=== PATIENT | female | born 1980 | race Asian ===

== ENCOUNTER 2017-04-20 18:08 | Outpatient (CLI) | payer OTHER | END 2017-04-20 19:12 | disposition home or self-care (01) | LOC: INF 18:08 | DX: E86.0 Dehydration (principal) | CPT/HCPCS: 96360; 96361 ==

== ENCOUNTER 2018-12-21 13:57 | Outpatient (CLI) | payer OTHER | END 2018-12-21 20:07 | disposition home or self-care (01) | LOC: LABW 13:57 | DX: D50.8 Other iron deficiency anemias (principal); K21.9 Gastro-esophageal reflux disease without esophagitis | CPT/HCPCS: 36415; 82728; 82746; 83540; 83550; 86850; 86870; 86900; 86901; 86922 ==

== ENCOUNTER 2018-12-28 11:03 | Observation (INO) | payer OTHER ==
[~2018-12-28] VITALS: Ht 167.6 cm; Wt 89.4 kg
[2018-12-28 11:05] VITALS: BP 131/86; TEMP 98.2
[2018-12-28 11:48] LABS: PLATELET COUNT 191 K/uL (152-353)
[2018-12-28 11:58] LABS: POTASSIUM 3.5 mmol/L (3.6-5.2)
[2018-12-28 15:40] VITALS: BP 135/78; TEMP 99.1; Ht 167.6 cm; Wt 89.4 kg
[2018-12-28 16:00] VITALS: BP 127/75
[2018-12-28 17:00] VITALS: BP 120/77; TEMP 99.3
[2018-12-28] MEDS ORDERED: FERROUS SULF325 M1 PO (17:50)
[2018-12-28] MEDS ORDERED: THIA100T8 PO (17:51)
[2018-12-28 20:00] VITALS: TEMP 99.7
[2018-12-28 23:00] VITALS: BP 108/62
[2018-12-29] VITALS (14 sets, daily range): BP systolic 83–119; BP diastolic 38–73; TEMP 98.2–99.2
[2018-12-30] VITALS: BP 104/50; TEMP 98.8
[2018-12-30 04:00] VITALS: BP 106/59; TEMP 97.7
[2018-12-30 06:49] LABS: PLATELET COUNT 148 K/uL (152-353)
[2018-12-30 08:00] VITALS: BP 108/61; TEMP 97.6
== END 2018-12-30 11:30 | disposition home or self-care (01) ==
LOC: ED 11:03 → ICU 15:20 → MED/SURG 12-29 12:20 → ICU 12-29 12:20 → MED/SURG 12-29 12:20
PROVIDERS: Emergency Medicine; ADMIT Emergency Medicine
DX: D57.20 Sickle-cell/Hb-C disease without crisis (principal)
CPT/HCPCS: 36415; 80053; 85014; 85018; 85027; 85044; 86850; 86900; 86901; 86922; 93005; 96360; 99220; 99284; G0378; J1650; J2175; J2405; P9016

== ENCOUNTER 2019-01-10 10:40 | Outpatient (CLI) | payer OTHER ==
[~2019-01-10] VITALS: Ht 160 cm; Wt 65.8 kg
[~2019-01-10 10:40] MED LIST: FERROUS SULF325 M1 PO; THIA100T8 PO
[2019-01-10 13:25] VITALS: BP 108/57; TEMP 98.7
== END 2019-01-10 20:17 | disposition home or self-care (01) ==
LOC: INF 10:40
PROC: 30233N1 Transfusion of Nonautologous Red Blood Cells into Peripheral Vein, Percutaneous Approach (ICD-10-PCS; principal; 2019-01-10)
DX: D50.8 Other iron deficiency anemias (principal)
CPT/HCPCS: 36430; 85014; 85018; 86850; 86900; 86901; 86922; P9016

== ENCOUNTER 2019-02-20 17:11 | Outpatient (CLI) | payer OTHER ==
[2019-02-20 17:26] LABS: PLATELET COUNT 267 K/uL (152-353)
[2019-02-20 17:34] LABS: POTASSIUM 3.9 mmol/L (3.6-5.2)
== END 2019-02-20 20:05 | disposition home or self-care (01) ==
LOC: LABW 17:11
PROVIDERS: Family Medicine
DX: E53.9 Vitamin B deficiency, unspecified (principal); D64.89 Other specified anemias; R42 Dizziness and giddiness
CPT/HCPCS: 36415; 80053; 82607; 85027

== ENCOUNTER 2019-02-21 11:45 | Emergency (ER) | payer OTHER ==
[~2019-02-21] VITALS: Ht 160 cm; Wt 65.8 kg
[2019-02-21 12:00] VITALS: TEMP 97.3
[2019-02-21 14:28] VITALS: BP 129/75
== END 2019-02-21 15:08 | disposition short-term general hospital (02) ==
LOC: ED 11:45
DX: D57.00 Hb-SS disease with crisis, unspecified (principal)
CPT/HCPCS: 36415; 96360; 96375; 99284; J2175; J2405

== ENCOUNTER 2019-02-21 15:40 | Outpatient (CLI) | payer OTHER | END 2019-02-21 16:50 | disposition short-term general hospital (02) | LOC: AMB 15:40 | DX: D57.00 Hb-SS disease with crisis, unspecified (principal); M79.605 Pain in left leg; M79.604 Pain in right leg; R53.1 Weakness | CPT/HCPCS: A0425; A0429 ==

== ENCOUNTER 2020-02-07 16:40 | Outpatient (CLI) | payer BC, OTHER | END 2020-02-07 22:24 | disposition home or self-care (01) | LOC: LABW 16:40 | DX: D64.9 Anemia, unspecified (principal) | CPT/HCPCS: 36415; 82746; 83540; 83550; 85014; 85018; 86850; 86900; 86901; 86922 ==

== ENCOUNTER 2020-02-17 09:27 | Outpatient (CLI) | payer BC, OTHER | END 2020-02-17 23:37 | disposition home or self-care (01) | LOC: INF 09:27 | DX: D64.9 Anemia, unspecified (principal) | CPT/HCPCS: 36415; 36430; 85014; 85018; 86850; 86870; 86900; 86901; 86922; P9016 ==

== ENCOUNTER 2020-02-18 11:37 | Outpatient (CLI) | payer BC, OTHER | END 2020-02-18 20:21 | disposition home or self-care (01) | LOC: LAB 11:37 | DX: Z00.00 Encounter for general adult medical examination without abnormal findings (principal) | CPT/HCPCS: 36415; 85014; 85018 ==

== ENCOUNTER 2020-02-21 10:11 | Outpatient (CLI) | payer BC, OTHER | END 2020-02-21 21:50 | disposition home or self-care (01) | LOC: RAD 10:11 | DX: R10.13 Epigastric pain (principal); R13.12 Dysphagia, oropharyngeal phase; K21.9 Gastro-esophageal reflux disease without esophagitis; K44.9 Diaphragmatic hernia without obstruction or gangrene; K29.70 Gastritis, unspecified, without bleeding ==

== ENCOUNTER 2020-03-06 08:17 | Outpatient (CLI) | payer BC, OTHER ==
[~2020-03-06] VITALS: Ht 167.6 cm; Wt 95.3 kg
[2020-03-06 08:30] VITALS: BP 122/76; TEMP 98.6
== END 2020-03-06 11:05 | disposition home or self-care (01) ==
LOC: INF 08:17
DX: D50.8 Other iron deficiency anemias (principal); R53.83 Other fatigue
CPT/HCPCS: 36591; 84100; 85014; 85018; 96365; J1439

== ENCOUNTER 2020-03-14 07:39 | Outpatient (CLI) | payer BC, OTHER ==
[~2020-03-14] VITALS: Ht 167.6 cm; Wt 95.3 kg
[2020-03-14 10:50] VITALS: BP 113/61; TEMP 98
== END 2020-03-14 12:20 | disposition home or self-care (01) ==
LOC: INF 07:39
DX: D50.8 Other iron deficiency anemias (principal)
CPT/HCPCS: 96365; J1439

== ENCOUNTER 2020-04-01 16:13 | Outpatient (CLI) | payer BC, OTHER | END 2020-04-01 19:25 | disposition home or self-care (01) | LOC: RAD 16:13 | DX: R05 Cough (principal) ==

== ENCOUNTER 2022-10-29 11:53 | Outpatient (CLI) | payer BC, OTHER | END 2022-10-29 20:42 | disposition home or self-care (01) | LOC: RAD 11:53 | PROVIDERS: ATTEND Plastic Surgery | DX: Z01.818 Encounter for other preprocedural examination (principal); R94.31 Abnormal electrocardiogram [ECG] [EKG] | CPT/HCPCS: 93005 ==

== ENCOUNTER 2023-05-05 11:54 | Outpatient (CLI) | payer BC, OTHER ==
[~2023-05-05] VITALS: Ht 167.6 cm; Wt 96.6 kg
[2023-05-05 11:59] VITALS: BP 136/83; TEMP 98.4
== END 2023-05-05 18:58 | disposition home or self-care (01) ==
LOC: INF 11:54
PROVIDERS: ATTEND Family Medicine
DX: D50.8 Other iron deficiency anemias (principal)
CPT/HCPCS: 96365; 96366; J1756

== ENCOUNTER 2023-05-10 11:59 | Outpatient (CLI) | payer BC, OTHER ==
[~2023-05-10] VITALS: Ht 175.3 cm; Wt 99.3 kg
[2023-05-10 12:30] VITALS: BP 140/83; TEMP 98.7
[2023-05-10 14:55] VITALS: BP 154/90; TEMP 98.3
== END 2023-05-10 20:23 | disposition home or self-care (01) ==
LOC: INF 11:59
PROVIDERS: ATTEND Family Medicine
DX: D50.8 Other iron deficiency anemias (principal)
CPT/HCPCS: 96365; J1756

== ENCOUNTER 2023-05-14 14:05 | Outpatient (CLI) | payer BC, OTHER ==
[~2023-05-14] VITALS: Ht 175.3 cm; Wt 99.3 kg
[2023-05-14 14:10] VITALS: BP 146/85; TEMP 98.4
== END 2023-05-14 19:03 | disposition home or self-care (01) ==
LOC: INF 14:05
PROVIDERS: ATTEND Family Medicine
DX: D50.8 Other iron deficiency anemias (principal)
CPT/HCPCS: 96365; 96366; J1756

== ENCOUNTER 2023-05-17 15:45 | Outpatient (CLI) | payer BC, OTHER ==
[~2023-05-17] VITALS: Ht 175.3 cm; Wt 99.3 kg
[2023-05-17 15:50] VITALS: BP 152/96; TEMP 98.1
== END 2023-05-17 21:56 | disposition home or self-care (01) ==
LOC: INF 15:45
PROVIDERS: ATTEND Family Medicine
DX: D50.8 Other iron deficiency anemias (principal)
CPT/HCPCS: 96365; 96366; J1756